=== PATIENT | male | born 1980 | race Caucasian/White ===

== ENCOUNTER 2021-05-01 13:33 | Emergency (ER) | payer OTHER, SELFPAY ==
--- NOTE | ~2021-05-01 | CT_ITS ---
EXAMINATION: CT soft tissue neck w con DATE: 05/01/2021 16:30 INDICATION: Swelling TECHNIQUE: Computed tomography (CT) of the neck was performed with 75 mL Omnipaque-350 intravenous co ntrast. Automated exposure control and iterative reconstruction technique were employed. Exam dose: 537.59 mGy-cm total exam DLP. COMPARISON: None FINDINGS: There were contents are unremarkable. The included intracranial contents appear normal. The parotid glands are symmetric and normal in appearance. The submandibular glands likewise appear s ymmetric and normal in appearance. Up to 12 x 16 mm left submandibular lymph nodes. Approximately 10.5 x 14 mm submandibular right lymph node. There is subcutaneous fat stranding/edema in the left mandibular and anterior right mandibular area, extending into the lower cervical area bilaterally, with thickening of the platysma on the left. Ther e are leads O exam generally should be considered. No subcutaneous emphysema is evident. No abscess i s identified. The airway is patent. The epiglottis appears normal. No tracheal narrowing. Incidental finding of dental caries. IMPRESSION: Premandibular and submandibular subcutaneous fat stranding and platysma thickening, grea ter on the left. Consider liquids angina. Prominent bilateral submandibular lymph nodes, left greater than right Bilateral dental caries Reviewed, dictated and finalized at [facility]. Reviewed, dictated and finalized at [facility]. IMPRESSION: Premandibular and submandibular subcutaneous fat stranding and mir tysma thickening, greater on the left. Consider liquids angina. Prominent bilateral submandibular lymph nodes, left greater than right Bilateral dental caries
[2021-05-01 13:55] VITALS: BP 131/82; PULSE 62; RESP 18; TEMP 36.6; O2SAT 98
[2021-05-01 14:48] LABS: Basophils Percent Auto 0.5 % (0.2-1.2); Eosinophils Absolute Auto 0.1 K/mm3 (0-0.3); Eosinophils Percent Auto 0.8 % (0-4.4); Hematocrit 46.3 % (42.0-52.0); Hemoglobin 15.2 g/dL (14.0-18.0); Immature Granulocyte Absolute 0.03 K/mm3 (0.00-0.031); Immature Granulocyte Percent A 0.5 % (0-0.5); Lymphocytes Percent Auto 18.1 % (18.3-44.2); Mean Corpuscular HGB Conc 32.8 g/dl (32-36); Mean Corpuscular Hemoglobin 30.8 pg (26-34); Mean Corpuscular Volume 93.9 fl (80-100); Mean Platelet Volume 10.5 fl (7.4-10.4); Monocytes Absolute Auto 0.6 K/mm3 (0.1-0.6); Monocytes Percent Auto 8.6 % (2.6-8.5); Neutrophils Absolute Auto 4.8 K/mm3 (1.3-6.7); Neutrophils Percent Auto 71.5 % (45.5-73.1); Platelet Count Result 231 k/mm3 (150-375); Red Blood Count 4.93 M/mm3 (4.6-6.20); Red Cell Distribution Width 13.3 % (11.5-14.5); White Blood Count 6.6 K/mm3 (4.5-10.0)
[2021-05-01 15:02] LABS: Alanine Aminotransferase 26 U/L (4-50); Albumin Level 4.5 g/dL (3.5-5.1); Alkaline Phosphatase 82 U/L (38-126); Anion Gap 7 mmol/L (8-16); Aspartate Amino Transferase 25 U/L (17-59); Bilirubin,Total 0.6 mg/dL (0.2-1.3); Blood Urea Nitrogen 9 mg/dL (9-20); CRP 7.2 mg/dL (<1.0); Calcium 8.9 mg/dL (8.4-10.2); Carbon Dioxide 27 mmol/L (22-30); Chloride 106 mmol/L (98-107); Estimated CRCL calculation 115 ml/min; Estimated Glomerular Filt Rate > 60; Glucose 128 mg/dL (65-110); Sodium 140 mmol/L (137-145)
[2021-05-01 15:41] VITALS: BP 128/91; PULSE 62; TEMP 37.1; O2SAT 95
[2021-05-01 17:57] VITALS: BP 131/89; PULSE 62; TEMP 36.7; O2SAT 97
[2021-05-01] MEDS: DEXAMETHASONE SOD PHOS INJ 4 MG/ML VIAL 10 MG IV PUSH (18:20)
--- NOTE | 2021-05-01 19:01 | ED.GENADULT ---
HPI - General Adult General Chief complaint: Dental/Oral Stated complaint: swelling to face Time Seen by Provider: 05/01/21 14:30 Source: patient Mode of arrival: ambulatory Limitations: no limitations History of Present Illness HPI narrative: Patient presents with chief complaint of swelling to the left side of his face. Patient states his symptoms began on Sunday. He reports beginning on Sunday he began taking his sister's prescription of clindamycin 300 mg every 6 hours. He reports he has noticed decreased swelling but he feels that he is having some swelling in his throat and he feels some swollen areas when he touches his throat on the outside. Patient has been able to breathe and swallow appropriately. Patient denies any fever or chills. Patient denies any vomiting. Related Data Home Medications Medication Instructions Recorded Confirmed No Home Medications 05/01/21 05/01/21 Allergies Allergy/AdvReac Type Severity Reaction Status Date / Time sulfamethoxazole Allergy Unknown Rash Verified 05/01/21 14:30 trimethoprim Allergy Unknown Rash Verified 05/01/21 14:30 Review of Systems Review of Systems: CONSTITUTIONAL: Denies fever, chills, or sweats. EYES: Denies visual changes, redness, or discharge. ENT: Reports dental pain and swelling denies rhinorrhea, congestion, sore throat, or otalgia. CARDIOVASCULAR: Denies chest pain, palpitations, or edema. RESPIRATORY: Denies cough or dyspnea. GASTROINTESTINAL: Denies abdominal pain, nausea, vomiting, or diarrhea. GENITOURINARY: Denies dysuria or hematuria. SKIN: Denies rash or itching. MUSCULOSKELETAL: Denies back pain, joint pain, or myalgia. NEUROLOGIC: Denies headache, numbness, dizziness, or weakness. PSYCHIATRIC: Denies anxiety or depression. Exam Narrative: GENERAL: Well-appearing, well-nourished, and in no acute distress. HEAD: Normocephalic, atraumatic. EYES: PERRLA and EOMI. ENT: Nares clear, no rhinorrhea or epistaxis. Mucous membranes moist. Oropharynx without tonsillar hypertrophy exudate or other lesions. Bilateral TMs pearly khan nonbulging. Airway is patent. There is extensive caries throughout. Floor of patient's mouth is soft. NECK: Supple. Submandibular area lymphadenopathy palpated. Range of motion intact. CHEST: Clear to auscultation. No respiratory distress. No wheezes rales or rhonchi HEART: Regular rate and rhythm. No murmur heard. Normal peripheral pulses. EXTREMITIES: Normal range of motion. No edema. SKIN: Warm, dry, no rash. NEURO: No focal deficits. Alert and oriented x3. PSYCH: Normal mood and affect. Course Vital Signs Vital signs: Vital Signs Temperature 97.8 F 05/01/21 13:55 Pulse Rate 62 05/01/21 13:55 Respiratory Rate 18 05/01/21 13:55 Blood Pressure 131/82 05/01/21 13:55 Pulse Oximetry 98 05/01/21 13:55 Temperature 98.1 F 05/01/21 17:57 Pulse Rate 62 05/01/21 17:57 Respiratory Rate 18 05/01/21 13:55 Blood Pressure 131/89 05/01/21 17:57 Pulse Oximetry 97 05/01/21 17:57 Medical Decision Making MDM Narrative Medical decision making narrative: Consult Dr. Hartman ear nose throat regarding patient's presentation, labs, CT report. He states that if the patient's floor of his mouth is soft and patient is handling his secretions well, speaking appropriately, and feels well enough to go home.he can be given steroids in emergency department with steroids antibiotics for home and follow-up outpatient. He reports with the patient presentation, physical exam, & labs ludwigs is very unlikely. Patient declines a work note. Vital Signs Vital Signs: Vital Signs Temperature 97.8 F 05/01/21 13:55 Pulse Rate 62 05/01/21 13:55 Respiratory Rate 18 05/01/21 13:55 Blood Pressure 131/82 05/01/21 13:55 Pulse Oximetry 98 05/01/21 13:55 Temperature 98.1 F 05/01/21 17:57 Pulse Rate 62 05/01/21 17:57 Respiratory Rate 18 05/01/21 13:55 Blood Pressure 131/89 05/01/21 17:
[2021-05-01 19:10] VITALS: BP 130/82; PULSE 60; RESP 18; TEMP 36.8; O2SAT 98
== END 2021-05-01 19:10 | disposition home or self-care (01) ==
PROVIDERS: General Practice; Emergency Provider Family Medicine; PCP Internal Medicine
DX: K02.9 Dental caries, unspecified (principal); K04.7 Periapical abscess without sinus
CPT/HCPCS: 36415; 70491; 80053; 85025; 86140; 96374; 99284; J1100; Q9967

== ENCOUNTER 2021-08-16 10:20 | Emergency (ER) | payer OTHER, SELFPAY ==
[2021-08-16 10:39] VITALS: BP 127/73; PULSE 86; RESP 18; TEMP 37.9; O2SAT 95
== END 2021-08-17 01:09 | disposition left against medical advice (07) ==
LOC: ANHED 12:53
PROVIDERS: PCP Internal Medicine
DX: Z53.21 Procedure and treatment not carried out due to patient leaving prior to being seen by health care provider (principal)
CPT/HCPCS: 99199